=== PATIENT | male | born 1955 | race Two or more races ===

== ENCOUNTER 2016-06-27 16:02 | Emergency (ER) | payer BC, OTHER ==
--- NOTE | 2016-06-27 16:18 | ED Physician Documentation ---
PD HPI BACK PAIN - Stated complaint Stated Complaint: RT SHOULDER AND NECK PX - History obtained from History obtained from: Patient - History of Present Illness Timing - onset: Other (61-year-old gentleman with diabetes presents with one week of constant pain running from the medial part of the right shoulder blade almost the right side of the neck. It is worse if he looks his arms over his head, but he says it feels like an internal pain. He's had pancreatitis before and feels reminiscent of that, although not in the same place obviously. He denies hemoptysis, shortness of breath, pedal edema, calf pain, recent travel, or history of DVT or PE.) Review of Systems Constitutional: denies: Fever, Chills Cardiac: denies: Chest pain / pressure, Palpitations, Pedal edema, Calf pain Respiratory: denies: Dyspnea, Cough, Hemoptysis, Wheezing GI: denies: Abdominal Pain, Nausea PD PAST MEDICAL HISTORY - Present Medications Home Medications: Ambulatory Orders Medication Instructions Recorded Confirmed Cyclobenzaprine [Flexeril] 10 mg PO TID PRN #14 tablet 06/27/16 - Allergies Allergies/Adverse Reactions: Allergies Allergy/AdvReac Type Severity Reaction Status Date / Time codeine Allergy Unknown Verified 06/27/16 16:18 PD ED PE NORMAL - Vitals Vital signs reviewed: Yes - General General: Alert and oriented X 3, No acute distress - HEENT HEENT: PERRL, EOMI, Ears normal - Neck Neck: Supple, no meningeal sign, No bony TTP - Cardiac Cardiac: RRR, No murmur - Respiratory Respiratory: No respiratory distress, Clear bilaterally - Abdomen Abdomen: Soft, Other (Mild RUQ tenderness) - Back Back: Other (No sig msk ttp of the back) - Extremities Extremities: No edema, No calf tenderness / cord - Neuro Neuro: Alert and oriented X 3, Normal speech - Psych Psych: Normal mood, Normal affect Results - Vitals Vitals: Vital Signs - 24 hr 06/27/16 16:03 Temperature 36.8 C Heart Rate 96 Respiratory 20 Rate Blood Pressure 174/97 H O2 Saturation 99 Oxygen O2 Source Room air - EKG (time done) 1708 Rate: Rate (enter#) (82) Rhythm: NSR [place]: Normal Intervals: Normal [place] Ischemia: Non specific changes Computer interpretation: Agree with computer - Labs Labs: Laboratory Tests 06/27/16 06/27/16 06/27/16 17:20 17:20 17:20 WBC 10.6 RBC 4.43 L Hgb 12.8 L Hct 38.3 L MCV 86.4 MCH 28.9 MCHC 33.5 RDW 13.3 Plt Count 264 MPV 9.0 Neut # 6.5 Lymph # 2.8 [place] # 1.1 H Eos # 0.2 Baso # 0.1 Absolute Nucleated RBC 0.01 Nucleated RBCs 0.1 Sodium 141 Potassium 4.4 Chloride 107 Carbon Dioxide 24 Anion Gap 10.0 BUN 29 H Creatinine 1.3 H Estimated GFR (MDRD) 57 L Glucose 97 Calcium 10.1 Total Bilirubin 0.4 AST 21 ALT 34 Alkaline Phosphatase 63 Troponin I < 0.04 Total Protein 7.3 Albumin 4.5 Globulin 2.8 Albumin/Globulin Ratio 1.6 Lipase 23 - Rads (name of study) 2v chest Radiology: EMP read contemporaneously (normal) RUQ sono Radiology: EMP read contemporaneously (liver steatosis, otherwise normal) PD MEDICAL DECISION MAKING - ED course ED course: 61-year-old gentleman with right-sided back pain and some muscular. He had specific concerned about gallstones which he was found not to have. Other screening tests for acute emergency were negative. We discussed his elevated creatinine, it sounds like that is a chronic issue. Also his fatty liver. Departure - Departure Disposition: 01 Home, Self Care Clinical Impression: Fatty liver, Elevated serum creatinine Back pain Qualifiers: Back pain location: thoracic back pain Chronicity: acute Back pain laterality: right Qualified Code(s): M54.6 - Pain in thoracic spine Condition: Good Record reviewed to determine appropriate education?: Yes Instructions: Back Tension Relieve Prescriptions: Cyclobenzaprine [Flexeril] 10 mg PO TID PRN #14 tablet PRN Reason: Pain Comments: As discussed, your creatinine is 1.3 which is slightly elevated, it sounds from your description this is a chronic issue. Follow up with your doctor discussed. Return if worse. Do not drink or drive while taking the muscle relaxer. Your blood pressure was elevated today on check in to the emergency department. This does not mean that you have hypertension, it is a common phenomenon to check into the emergency department and have elevated blood pressure. I recommend that you see your primary care physician within the week to have it rechecked when you're feeling better.
[2016-06-27 16:24] VITALS: BP 174/97
--- NOTE | 2016-06-27 16:47 | XRAY Preliminary Report ---
Exam: XR Chest 2 View PA/LAT IMPRESSION: No acute intrathoracic plain film abnormality. [facility] SITE ID: [id number]
--- NOTE | 2016-06-27 16:50 | XRAY Report ---
EXAM: CHEST RADIOGRAPHY EXAM DATE: 06/27/2016 04:34 PM. CLINICAL HISTORY: Back pain. COMPARISON: None. TECHNIQUE: 2 views. FINDINGS: Lungs/Pleura: No focal opacities evident. No pleural effusion. No pneumothorax. Normal volumes. Mediastinum: Heart and mediastinal contours are unremarkable. Other: None. IMPRESSION: No acute intrathoracic plain film abnormality. [facility] Referring Provider Line: [phone] SITE ID: [id number]
--- NOTE | 2016-06-27 17:22 | Ultrasound Preliminary Report ---
Exam: US Abdomen Limited IMPRESSION: 1. The gallbladder demonstrates no stones or wall thickening. 2. There is no intra-or extrahepatic bile duct dilatation. 3. Coarse hepatic echotexture suggestive of steatosis. [facility] SITE ID: [id number]
--- NOTE | 2016-06-27 17:25 | Ultrasound Report ---
EXAM: ABDOMEN ULTRASOUND LIMITED, RUQ EXAM DATE: 06/27/2016 05:07 PM. CLINICAL HISTORY: R back pain, eval RUQ. COMPARISON: None. TECHNIQUE: Real-time scanning was performed with static images obtained. FINDINGS: Liver: Submitted images of liver demonstrate no focal lesions. Course hepatic echotexture is suggesti ve of steatosis. Main portal vein flow: Hepatopetal. Gallbladder: No stones, wall thickening, or sonographic Cobb's sign. Biliary System: CBD measures 5 mm. No intrahepatic or extrahepatic ductal dilatation. Other: The pancreas is not well-seen. The right kidney demonstrates no evidence of hydronephrosis. IMPRESSION: 1. The gallbladder demonstrates no stones or wall thickening. 2. There is no intra-or extrahepatic bile duct dilatation. 3. Coarse hepatic echotexture suggestive of steatosis. [facility] Referring Provider Line: [phone] SITE ID: [id number]
[2016-06-27 17:36] LABS: BASOPHILS # (AUTO) 0.1 10^3/uL (0.0-0.1); EOSINOPHILS # (AUTO) 0.2 10^3/uL (0.0-0.7); EOSINOPHILS % (AUTO) 1.7 %; HCT - HEMATOCRIT 38.3 % (42.0-52.0); HGB - HEMOGLOBIN 12.8 g/dL (14.0-18.0); LYMPHOCYTES # (AUTO) 2.8 10^3/uL (1.5-3.5); LYMPHOCYTES % (AUTO) 26.6 %; MEAN CORPUSCULAR HEMOGLOBIN 28.9 pg (27.0-31.0); MEAN CORPUSCULAR HGB CONC 33.5 g/dL (32.0-36.0); MEAN CORPUSCULAR VOLUME 86.4 fL (80.0-94.0); MONOCYTES # (AUTO) 1.1 10^3/uL (0.0-1.0); MONOCYTES % (AUTO) 9.9 %; NEUTROPHILS # (AUTO) 6.5 10^3/uL (1.5-6.6); NEUTROPHILS % (AUTO) 60.8 %; NUCLEATED RED BLOOD CELLS AUTO 0.1 /100WBC; RED BLOOD COUNT 4.43 10^6/uL (4.70-6.10); RED CELL DISTRIBUTION WIDTH 13.3 % (12.0-15.0); UNCORRECTED WHITE BLOOD COUNT 10.6 x10^3/uL; WHITE BLOOD COUNT 10.6 x10^3/uL (4.8-10.8)
[2016-06-27 17:46] LABS: ALBUMIN/GLOBULIN RATIO 1.6 (1.0-2.2); BILIRUBIN,TOTAL 0.4 mg/dL (0.2-1.0); CALCIUM 10.1 mg/dL (8.5-10.3); CREATININE 1.3 mg/dL (0.6-1.2); POTASSIUM 4.4 mmol/L (3.5-5.0); TOTAL PROTEIN 7.3 g/dL (6.7-8.2)
== END 2016-06-27 18:18 | disposition home or self-care (01) ==
LOC: ED 16:02
DX: M54.6 Pain in thoracic spine (principal); K76.0 Fatty (change of) liver, not elsewhere classified; R03.0 Elevated blood-pressure reading, without diagnosis of hypertension; R79.89 Other specified abnormal findings of blood chemistry
CPT/HCPCS: 36415; 71020; 76705; 80053; 83690; 84484; 85025; 93005; 93010; 99283; 99284

== ENCOUNTER 2017-11-14 09:23 | Outpatient (CLI) | payer OTHER ==
[2017-11-14 18:12] LABS: CALCIUM 9.5 mg/dL (8.5-10.3); CREATININE 1.3 mg/dL (0.6-1.2)
== END 2017-11-14 09:24 | disposition home or self-care (01) ==
LOC: LAB.F 09:23
PROVIDERS: ATTEND Internal Medicine Endocrinology, Diabetes & Metabolism
DX: E87.5 Hyperkalemia (principal)
CPT/HCPCS: 36415; 80048

== ENCOUNTER 2023-03-07 09:02 | Emergency (ER) | payer OTHER ==
[2023-03-07 09:37] VITALS: O2SAT 99
[2023-03-07] MEDS ORDERED: LIDOCAINE PATCH 4% TOP STA (09:51)
[2023-03-07] MEDS ORDERED: CYCLOBENZAPRINE 10 MG TABLET PO STA (09:51)
--- NOTE | 2023-03-07 10:09 | ED Physician Documentation ---
PD HPI HEENT - Stated complaint Stated Complaint: C+,NECK PX - Chief complaint Chief Complaint: Heent - History obtained from History obtained from: Patient - Additional information Additional information: Patient is a 68-year-old male presenting for evaluation of right-sided neck pain since Sunday. Patient states that he has had URI symptoms with cough and congestion since last and tested positive for COVID on Sunday. Since Sunday he has had neck pain on the right which she notices more with turning in certain directions. He denies any trauma. No fever. No headache. No prior neck issues. No numbness or tingling or weakness to upper or lower extremities. Patient took Aleve this morning.He reports feeling that his COVID symptoms have improved. Review of Systems Constitutional: denies: Fever Nose: reports: Congestion Respiratory: reports: Cough. denies: Dyspnea Musculoskeletal: reports: Neck pain Neurologic: denies: Headache, Head injury PD PAST MEDICAL HISTORY - Past Medical History Past Medical History: Yes Cardiovascular: Hypertension, High cholesterol Endocrine/Autoimmune: Type 2 diabetes - Past Surgical History Past Surgical History: No - Present Medications Home Medications: Ambulatory Orders Medication Instructions Recorded Confirmed Cyclobenzaprine [Flexeril] 10 mg PO TID PRN #14 tablet 06/27/16 Cyclobenzaprine [Flexeril] 10 mg PO TID PRN #20 tablet 03/07/23 Lidocaine Patch 5% [Lidoderm Patch] 1 patch TOP DAILY PRN #10 patch 03/07/23 - Allergies Allergies/Adverse Reactions: Allergies Allergy/AdvReac Type Severity Reaction Status Date / Time codeine Allergy Unknown Verified 03/07/23 09:30 - Social History Does the pt smoke?: No Smoking Status: Never smoker Does the pt drink ETOH?: No Does the pt have substance abuse?: No - Immunizations Immunizations are current?: Yes - POLST Patient has POLST: No PD ED PE NORMAL - General General: Alert and oriented X 3, No acute distress, Well developed/nourished - HEENT HEENT: Atraumatic, Moist mucous membranes, Pharynx benign - Neck Neck: Supple, no meningeal sign, No bony TTP, No adenopathy, Other (No tenderness on palpation; No erythema, no swelling; Reports right paracervical pain when turning head to right - Otherwise good range of motion of neck) - Cardiac Cardiac: RRR, Strong equal pulses - Respiratory Respiratory: No respiratory distress, Clear bilaterally - Derm Derm: Warm and dry - Extremities Extremities: No tenderness to palpate, Normal ROM s pain, No edema - Neuro Neuro: Alert and oriented X 3, No motor deficit, No sensory deficit, Normal speech Results - Vitals Vitals: Vital Signs - 24 hr 03/07/23 03/07/23 09:24 10:26 Temperature 36.4 C L 36.4 C L Heart Rate 90 89 Respiratory 20 18 Rate Blood Pressure 161/86 H 155/85 H O2 Saturation 99 99 Oxygen O2 Source Room air PD Medical Decision Making - ED course ED course: Pt is a 68 yo M with atraumatic right neck pain in setting of recent Covid infection. Vital signs are stable. Normal neuroexam. No midline tenderness. No signs of meningitis or subarachnoid hemorrhage. Patient reports pain primarily when turning his head in 1 direction. No bony tenderness or trauma. No signs of localized infection or abscess. I suspect musculoskeletal etiology and discussed trial of supportive care to include anti-inflammatories, lidocaine patch and muscle relaxers. Patient counseled on concerning symptoms to return for. Departure - Departure Disposition: Home, Self Care Clinical Impression: Neck pain on right side Condition: Stable Instructions: ED Neck Pain No Trauma Prescriptions: Cyclobenzaprine [Flexeril] 10 mg PO TID PRN #20 tablet PRN Reason: Spasms Lidocaine Patch 5% [Lidoderm Patch] 1 patch TOP DAILY PRN #10 patch PRN Reason: pain Comments: At this time I do not see signs of a broken bone in your neck or meningitis. The pain in your neck could be related to tightness of the muscles and so I am recommending we trial a course of muscle relaxers along with continuing anti- inflammatories and also adding a lidocaine patch to see if this helps with your symptoms. Please return to the emergency department if you develop any worsening symptoms such as headache, fever, worsening pain, numbness or weakness in your arms. I have sent your prescriptions to [facility] in [place]. Forms: PCP List Discharge Date/Time: 03/07/23 10:26
[2023-03-07 10:34] VITALS: BP 155/85
== END 2023-03-07 10:26 | disposition home or self-care (01) ==
LOC: ED 09:02
DX: M54.2 Cervicalgia (principal); I10 Essential (primary) hypertension; E78.00 Pure hypercholesterolemia, unspecified; E11.9 Type 2 diabetes mellitus without complications
CPT/HCPCS: 99282; 99283; A9270